=== PATIENT | female | born 1995 | race African-American/Black ===

== ENCOUNTER 2025-02-08 13:15 | Emergency (ER) | payer MEDICAID, OTHER ==
[~2025-02-08] VITALS: Ht 157.5 cm; Wt 50.0 kg
[2025-02-08 13:23] VITALS: O2SAT 98
[2025-02-08 13:50] LABS: BASOPHILS % 0.7 % (0.0-2.0); EOSINOPHILS % 0.7 % (0.0-5.0); HEMATOCRIT. 37.6 % (36.0-48.0); HEMOGLOBIN. 12.7 g/dL (12.0-16.0); LYMPHOCYTES % 20.3 % (20.0-50.0); MEAN PLATELET VOLUME 8.8 fl (7.4-10.4); MONOCYTES % 11.6 % (2.0-8.0); NEUTROPHILS % 66.7 % (40.0-76.0); PLATELET 188 x1000/uL (130-400); RED BLOOD CELL COUNT 3.70 mill/uL (4.2-5.4); RED CELL DISTRIBUTION WIDTH 13.2 % (11.6-14.6)
[2025-02-08] MEDS ORDERED: CHLORDIAZEPOXIDE 25MG CAPSULE PO ONE (14:00)
[2025-02-08 14:17] LABS: CREATININE 0.6 mg/dL (0.6-1.0)
[2025-02-08 14:18] LABS: UREA NITROGEN BLOOD 6 mg/dL (9-23)
[2025-02-08 15:00] LABS: ETHANOL BLOOD 184 mg/dL (<10); PROTEIN TOTAL 5.5 g/dL (6.0-8.3)
[2025-02-08] MEDS: SODIUM CHLORIDE 0.9% 1,000 ML IV ONE (15:00)
[2025-02-08] MEDS: CHLORDIAZEPOXIDE 25MG CAPSULE PO SCH (15:00)
[2025-02-08] MEDS: POTASSIUM CHLORIDE 20MEQ TABLET SR PO ONE (15:00)
[2025-02-08 15:02] LABS: ASPARTATE AMINOTRANSFERASE 114 IU/L (<34); BILIRUBIN DIRECT 0.1 mg/dL (<=3.0); BILIRUBIN TOTAL 0.2 mg/dL (0.1-1.0)
[2025-02-08 15:05] LABS: HCG SCREEN NEGATIVE
[2025-02-08] MEDS: FOLIC ACID 1 MG, THIAMINE HCL 100 MG, MVI, ADULT NO.1 10 ML in DEXTROSE 5% WATER 1,000 ML IV ONE (15:16)
[2025-02-08 15:51] VITALS: BP 137/75; PULSE 95; RESP 17; TEMP 36.9; O2SAT 98
== END 2025-02-08 15:52 | disposition home or self-care (01) ==
LOC: ER 13:15 → CMPBEDREQ 02-09 15:20
DX: F10.229 Alcohol dependence with intoxication, unspecified (principal); E83.42 Hypomagnesemia; E87.6 Hypokalemia; Y90.9 Presence of alcohol in blood, level not specified
CPT/HCPCS: 80076; 80048; 80320; 84703; 83735; 85025; 36415; 96365; 99284; J3490 ×2; J3411; J7070; J7030; G0480